=== PATIENT | female | born 1970 | race Caucasian/White ===

== ENCOUNTER 2016-11-19 08:55 | Emergency (ER) | payer OTHER | END 2016-11-19 09:34 | disposition home or self-care (01) | LOC: ER 08:55 | DX: N39.0 Urinary tract infection, site not specified (principal); R30.0 Dysuria; F17.210 Nicotine dependence, cigarettes, uncomplicated; Z79.899 Other long term (current) drug therapy | CPT/HCPCS: 99282 ==